=== PATIENT | female | born 1995 | race Caucasian/White ===

== ENCOUNTER → 2018-02-15 | Outpatient (CLI) | payer BC ==
[2018-02-16 13:06] VITALS: BMI 21.8
== END | disposition home or self-care (01) ==
LOC: LABWHC1 12:52
PROVIDERS: ATTEND Psychiatry & Neurology Neurology
DX: R63.0 Anorexia (principal)
CPT/HCPCS: 97802

== ENCOUNTER 2019-02-05 23:14 | Outpatient (CLI) | payer BC ==
[2019-02-06 01:41] VITALS: BP 134/81; PULSE 86; RESP 18; TEMP 98.5
--- NOTE | 2019-03-02 11:23 | P.MSEPDOC ---
Presenting Problems - Arrival Data Date of Arrival on Unit: 02/05/19 Time of Arrival on Unit: 23:14 Mode of Transport: Ambulatory - Complaint OB-Reason for Admission/Chief Complaint: Possible Onset of Labor Medical History - Information : 5 Para: 0 Term: 0 : 0 Abortions: Spontaneous or Elective: 4 Number of Living Children: 0 - Gestational Age Gestational Age by JESSENIA (wks/days): 38 Weeks and 0 Days Review of Systems - Review of Systems Constitutional: No problems Breast: No problems ENT: No problems Cardiovascular: No problems Respiratory: No problems Gastrointestinal: No problems Genitourinary: No problems Musculoskeletal: No problems Neurological: No problems Skin: No problems Vital Signs - Temperature Temperature: 98.5 F Temperature Source: Oral - Pulse Pulse Oximetery Pulse Rate: 86 Pulse Assessment Method: Pulse Oximetry - Respirations Respiratory Rate: 18 Oxygen Delivery Method: Room Air O2 Sat by Pulse Oximetry: 100 - Blood Pressure Right Arm Blood Pressure: 134/81 Blood Pressure Mean: 98 Blood Pressure Source: Automatic Cuff Medical Screen Scoring (Pre) - Cervical Exam Dilation: 1-3 cm = 1 Effacement: More than 50% = 2 Membranes: Intact - Uterine Contractions Frequency: > 5 minutes apart = 1 Duration: > 40 seconds = 2 Intensity: Contraction palpated strong = 1 - Maternal Vital Signs Maternal Temperature: N/A Signs of Preeclampsia: N/A Maternal Respirations: N/A - Maternal Trauma Maternal Trauma: N/A - Assessment - Baby A Baseline FHR: 140 Heart Rate - NICHD Category: Category I (Normal) = 0 NST: Reactive Position: N/A Station: N/A - Total Score - Baby A Total Score - Baby A: 7 - Total Score - Baby B Total Score - Baby B: 7 - Total Score - Baby C Total Score - Baby C: 7 - Level of Risk - Baby A Level of Risk - Baby A: Medium (6-9) - Level of Risk - Baby B Level of Risk - Baby B: Medium (6-9) - Level of Risk - Baby C Level of Risk - Baby C: Medium (6-9) Physician Notification (Pre) - Physician Notified Physician Notified Date: 02/06/19 Physician Notified Time: 00:00 New Order Received: Yes (Recheck in one hour and if no change D/C home) - Notification Comment Comment: Notified of pt complaint of contractions since early today about 3/10 pain scale. Denies leaking of fluid. Disposition - Disposition OB Disposition: Discharge to home Transferred to:: home Discharge Date: 02/06/19 Discharge Time: 01:05 I agree with the RN Medical Screening Exam: Yes Risk & Benefit of care provided described in d/c instruction: Yes Diagnosis: FALSE LABOR AT OR AFTER 37 COMPLETED WEEKS OF GESTATION
== END 2019-02-06 01:15 | disposition home or self-care (01) ==
LOC: FBPOP 23:14
PROVIDERS: ATTEND Obstetrics & Gynecology Obstetrics
DX: O47.1 False labor at or after 37 completed weeks of gestation (principal); Z3A.38 38 weeks gestation of pregnancy
CPT/HCPCS: 99213

== ENCOUNTER 2019-02-06 03:59 | Inpatient (IN) | payer BC ==
[2019-02-06] MEDS ORDERED: CARBOPROST TROMETHAMINE 250 MCG/ML 1 ML AMP IM PRN (04:27)
[2019-02-06] MEDS ORDERED: OXYTOCIN 10 UNIT/ML 1 ML VIAL IM PRN (04:27)
[2019-02-06] MEDS ORDERED: TERBUTALINE 1 MG/ML VIAL SQ PRN (04:27)
[2019-02-06] MEDS ORDERED: METHYLERGONOVINE 0.2 MG/ML 1 ML AMP IM PRN (04:27)
[2019-02-06] MEDS ORDERED: LIDOCAINE 0.5% (PF) 5 MG/ML (50 ML SDV) SQ PRN (04:27)
[2019-02-06] MEDS: LACTATED RINGERS 1,000 ML IV SCH ×3 (04:50→06:32)
[2019-02-06 05:03] LABS: Basophils # (A) 0.1 k/uL (0-0.2); Basophils % (A) 0 %; Eosinophils # (A) 0.3 k/uL (0-0.7); Eosinophils % (A) 1 %; HCT 35.7 % (34.0-46.0); HGB 12.7 gm/dL (11.4-16.0); Lymphocytes # (A) 2.7 k/uL (1.0-4.8); Lymphocytes % (A) 13 %; MCH 32.1 pg (25.0-35.0); MCHC 35.6 g/dL (31.0-37.0); MCV 90.4 fL (80.0-100.0); Mean Platelet Volume 8.1; Monocytes # (A) 1.5 k/uL (0-1.0); Monocytes % (A) 7 %; Neutrophils # (A) 15.1 k/uL (1.3-7.7); Neutrophils % (A) 76 %; Platelet Count 256 k/uL (150-450); RBC 3.94 m/uL (3.80-5.40); RDW 12.4 % (11.5-15.5); WBC 19.9 k/uL (3.8-10.6)
[2019-02-06 05:07] LABS: Amphetamine Screen,Urine Not Detected (NotDetected); Barbiturate Screen,Urine Not Detected (NotDetected); Benzodiazepines Screen,Urine Not Detected (NotDetected); Cocaine Screen,Urine Not Detected (NotDetected); Methadone Screen, Urine Not Detected (NotDetected); Opiate Screen,Urine Not Detected (NotDetected); Oxycodone Screen, Urine Not Detected (NotDetected); Phencyclidine Screen,Urine Not Detected (NotDetected); Tricyclic Antidepressant,Urine Not Detected (NotDetected); Urn Cannabinoid Scrn Detected (NotDetected)
[2019-02-06] MEDS ORDERED: BUTORPHANOL 1 MG/ML 1 ML VIAL IV PRN (05:31)
[2019-02-06] MEDS ORDERED: OXYTOCIN 30 UNITS/500 ML NS 30 UNIT in SALINE 1 500ML.BAG IV SCH (07:45)
[2019-02-06] MEDS ORDERED: ROPIVACAINE 100 MG, fentaNYL (PF) 200 MCG in SODIUM CHLORIDE 0.9% 76 ML EPIDURAL ONE (07:54)
--- NOTE | 2019-02-06 08:21 | P.HPOB ---
History of Present Illness H&P Date: 02/06/19 Chief Complaint: IUP at 38-0/7 weeks, spontaneous rupture of membranes, labor This is a 23-year-old at 38-0/7 weeks that presents to labor and delivery with spontaneous rupture of membranes. Patient was seen in triage earlier with complaints of contractions and no cervical change was noted. Patient was discharged home and rupture of membranes occurred. She states the fluid was clear. She states the contractions became more intense. Patient does note good movement at this time. Patient has been receiving routine care with myself and has been complicated by poor maternal weight gain, phaco abuse, marijuana abuse and known circumvallate placenta. Patient has been followed with testing NSTs, growth ultrasound last growth ultrasound was done at 37 and 1/sevenths weeks' noted to be 18 percentile or 5 lbs. 9 oz. with a normal amniotic fluid index. On bloodwork patient has a blood type of A+, rubella immune, RPR nonreactive, hepatitis B surface antigen negative, HIV negative, most recent urinary drug screen done on 12/05 was positive for THC patient was counseled about quitting and effects on the development she declines. Group beta strep was negative on 01/24/19. Review of Systems Constitutional: Reports fatigue, Denies chills, Denies fever Ears, nose, mouth and throat: Denies headache Cardiovascular: Reports leg edema Respiratory: Denies dyspnea Gastrointestinal: Denies constipation, Denies diarrhea, Denies nausea, Denies vomiting Genitourinary: Reports Psychiatric: Reports anxiety, Reports depression Past Medical History Past Medical History: Asthma History of Any Multi-Drug Resistant Organisms: None Reported Past Surgical History: Tonsillectomy Past Anesthesia/Blood Transfusion Reactions: No Reported Reaction Past Psychological History: Anxiety, Depression Additional Psychological History / Comment(s): ASD, BPD Smoking Status: Current every day smoker Past Alcohol Use History: None Reported Past Drug Use History: None Reported Additional Drug Use History / Comment(s): Has Med Marijuana card and uses - Past Family History Father Family Medical History: COPD, Hypertension Additional Family Medical History / Comment(s): Mental disorders also stated per pt Medications and Allergies Home Medications Medication Instructions Recorded Confirmed Type Aspirin [Adult Low Dose Aspirin EC] 81 mg PO DAILY 02/06/19 02/06/19 History Famotidine [Pepcid] 10 mg PO DAILY 02/06/19 02/06/19 History Pnv No.95/Ferrous Fum/Folic AC 1 tab PO DAILY 02/06/19 02/06/19 History [ Multivitamin Tablet] buPROPion HCL [Wellbutrin XL] 300 mg PO DAILY 02/06/19 02/06/19 History Allergies Allergy/AdvReac Type Severity Reaction Status Date / Time shellfish derived [Shellfish] Allergy Anaphylaxis Verified 02/06/19 04:04 strawberry Allergy Rash/Hives Verified 02/06/19 04:04 banana AdvReac Rash/Hives Verified 02/06/19 04:04 blueberry AdvReac Rash/Hives Verified 02/06/19 04:04 green pepper AdvReac Rash/Hives Verified 02/06/19 04:04 latex AdvReac Rash/Hives Verified 02/06/19 04:05 onion AdvReac Rash/Hives Verified 02/06/19 04:04 tree nut AdvReac Rash/Hives Verified 02/06/19 04:04 Exam Osteopathic Statement: *. No significant issues noted on an osteopathic structural exam other than those noted in the History and Physical/Consult. Vital Signs Temp Pulse Resp BP Pulse Ox 02/06/19 04:25 98.4 F 95 18 125/82 98 02/06/19 04:11 98.4 F 95 18 125/63 98 Intake and Output 02/05/19 02/06/19 02/06/19 22:59 06:59 14:59 Other: # Voids 1 Weight 69.4 kg Targeted physical exam is performed in this date in general she is a well- nourished well-developed female in no acute distress, breathing is no piyush to be nonlabored, heart has a regular rate and rhythm, abdomen is gravid and appropriate for gestational age, heart tones are noted to be category 1, she is kalyani irregularly and on cervical exam she is 6/100/-1 station. Results Result Diagrams: 02/06/19 04:50 Abnormal Lab Results - Last 24 Hours (Table) 02/06/19 02/06/19 Range/Units 04:32 04:50 WBC 19.9 H (3.8-10.6) k/uL Neutrophils # 15.1 H (1.3-7.7) k/uL Monocytes # 1.5 H (0-1.0) k/uL U Marijuana (THC) Screen Detected H (NotDetected) Assessment and Plan (1) Term Current Visit: Yes Status: Acute Code(s): Z34.90 - ENCNTR FOR SUPRVSN OF NORMAL , UNSP, UNSP TRIMESTER SNOMED Code(s): 09938050 (2) SROM (spontaneous rupture of membranes) Current Visit: Yes Status: Acute Code(s): ZHP6624 - SNOMED Code(s): 499021623 (3) Active labor Current Visit: Yes Status: Acute Code(s): YEE2593 - SNOMED Code(s): 809375569 (4) Tobacco abuse Current Visit: Yes Status: Acute Code(s): Z72.0 - TOBACCO USE SNOMED Code(s): 652768976 (5) Marijuana abuse Current Visit: Yes Status: Acute Code(s): F12.10 - CANNABIS ABUSE, UNCOMPLICATED SNOMED Code(s): 95254187 Plan: Patient is admitted to labor and delivery with anticipation of spontaneous vaginal delivery. Given patient's contractions were noted to be irregular Pitocin augmentation of labor is begun. Patient did request epidural and this was placed by the anesthesia department.
[2019-02-06] MEDS ORDERED: HYDROcodone/APAP 5-325MG 1 EACH TAB PO PRN (11:21)
[2019-02-06] MEDS ORDERED: BENZOCAINE/MENTHOL SPRAY 1 GM/SPRAY AEROSOL TOPICAL PRN (11:21)
[2019-02-06] MEDS ORDERED: ZOLPIDEM 5 MG TAB PO PRN (11:21)
[2019-02-06] MEDS ORDERED: WITCH HAZEL 1 EACH MED..PAD TOPICAL PRN (11:21)
[2019-02-06] MEDS ORDERED: diphenhydrAMINE 50 MG/ML 1 ML VIAL IVP PRN ×2 (11:21)
[2019-02-06] MEDS ORDERED: SIMETHICONE 80 MG CHEWABLE PO PRN (11:21)
[2019-02-06] MEDS ORDERED: LANOLIN CREAM 5 GM TUBE TOPICAL PRN (11:21)
[2019-02-06] MEDS ORDERED: ACETAMINOPHEN TAB 325 MG TAB PO PRN (11:21)
[2019-02-06] MEDS ORDERED: diphenhydrAMINE 25 MG CAP PO PRN (11:21)
[2019-02-06] MEDS ORDERED: diphenhydrAMINE 50 MG CAP PO PRN (11:21)
[2019-02-06] MEDS ORDERED: HYDROCORTISONE 2.5% RECTAL CREAM 30 GM TUBE RECTAL PRN (11:21)
[2019-02-06] MEDS ORDERED: OXYTOCIN 20 UNITS/1000 ML NS 1,000 ML IV SCH (11:30)
--- NOTE | 2019-02-06 11:31 | P.PROBDLV ---
Vaginal Delivery Note - . Vaginal Delivery Note: This pleasant 23-year-old 5 para 0040 presented to labor and delivery at 38-0/7 weeks with complaints of rupture of membranes. Patient was seen earlier in the evening with complaints of contractions no cervical change was made therefore she was just discharged home and on the way home membranes were noted to be ruptured. Patient was admitted to labor and delivery and requested epidural placement. Epidural was placed by anesthesia without difficulty. Juliette ent contractions were noted to be spacing therefore Pitocin augmentation of labor was begun. Patient progressed to complete began pushing and had a normal spontaneous vaginal delivery of a viable female with a left compound hand presentation, weight of 5 lbs. 12 oz., Apgars of 8 and 9 at one and 5 minutes respectively. After two-minute delayed the umbilical cord was then doubly clamped and cut. The placenta was then delivered spontaneously intact with a three-vessel cord being noted. On inspection the patient's vaginal vault noted a second-degree midline vaginal laceration. This was repaired in the usual fashion with 3-0 Rapide. A small hematoma was noted 2 cm non-expanding after observation. Uterus is noted to be firm and below the umbilicus, estimated blood loss 200 mL patient and infant tolerated delivery well and are resting comfortably.
[2019-02-06] MEDS: IBUPROFEN 600 MG TAB PO PRN ×2 (14:12→19:36)
[2019-02-06] MEDS: SENNOSIDES-DOCUSATE SODIUM 1 EACH TAB PO SCH (19:37)
[2019-02-07] MEDS: IBUPROFEN 600 MG TAB PO PRN ×3 (07:38→22:56)
[2019-02-07] MEDS: SENNOSIDES-DOCUSATE SODIUM 1 EACH TAB PO SCH ×2 (07:38→20:58)
[2019-02-07 08:06] LABS: Basophils # (A) 0.1 k/uL (0-0.2); Basophils % (A) 0 %; Eosinophils # (A) 0.4 k/uL (0-0.7); Eosinophils % (A) 2 %; HCT 32.5 % (34.0-46.0); HGB 11.3 gm/dL (11.4-16.0); Lymphocytes # (A) 2.4 k/uL (1.0-4.8); Lymphocytes % (A) 12 %; MCH 32.5 pg (25.0-35.0); MCHC 34.8 g/dL (31.0-37.0); MCV 93.5 fL (80.0-100.0); Mean Platelet Volume 8.6; Monocytes # (A) 1.5 k/uL (0-1.0); Monocytes % (A) 7 %; Neutrophils # (A) 15.7 k/uL (1.3-7.7); Neutrophils % (A) 77 %; Platelet Count 225 k/uL (150-450); RBC 3.47 m/uL (3.80-5.40); RDW 12.6 % (11.5-15.5); WBC 20.3 k/uL (3.8-10.6)
--- NOTE | 2019-02-07 08:53 | P.DS ---
Providers Date of admission: 02/06/19 04:24 Expected date of discharge: 02/07/19 Attending physician: Sandie Lizama Primary care physician: Stated None - Discharge Diagnosis(es) (1) Term Current Visit: Yes Status: Acute (2) SROM (spontaneous rupture of membranes) Current Visit: Yes Status: Acute (3) Active labor Current Visit: Yes Status: Acute (4) Tobacco abuse Current Visit: Yes Status: Acute (5) Marijuana abuse Current Visit: Yes Status: Acute Hospital Course: This is a pleasant 23-year-old 5 para 0040 that presented to labor and delivery at 38-0/7 weeks with complaints of regular painful contractions and spontaneous rupture of membranes. Patient was admitted to labor and delivery and she quickly requested epidural for discomfort. Epidural was placed without difficulty by the anesthesia department. Her contraction pattern was noted to space after the epidural therefore Pitocin augmentation of labor was begun. Patient progressed to complete began pushing and had a normal spontaneous vaginal delivery of a viable female infant with a weight of 5 lbs. 12 oz. and Apgars of 8 and 9 at one and 5 minutes respectively. Patient did sustain a second-degree midline vaginal laceration which was repaired in the usual fashion with 3-0 Rapide. She did have a noted small hematoma partially 2 cm that was not expanding after delivery. On this day #1 it has decreased even further swelling has decreased in addition. patient has a known positive UDS for marijuana she states she is attempting to breast-feed I did patient financial counselor her that breast-feeding is discouraged with marijuana use. She will consider. I do believe she will continue to attempt to breast- feed. Risks of breast-feeding with marijuana use are discussed she denies any questions regarding this. On this day #1 she is ambulating and voiding without difficulty. Her pain is controlled with oral ibuprofen, her lochia is minimal. She is considering discharge home at 24 hours. Patient Condition at Discharge: Good Plan - Discharge Summary New Discharge Prescriptions: No Action buPROPion HCL [Wellbutrin XL] 300 mg PO DAILY Pnv No.95/Ferrous Fum/Folic AC [ Multivitamin Tablet] 1 tab PO DAILY Famotidine [Pepcid] 10 mg PO DAILY Aspirin [Adult Low Dose Aspirin EC] 81 mg PO DAILY Discharge Medication List Aspirin [Adult Low Dose Aspirin EC] 81 mg PO DAILY 02/06/19 [History] Famotidine [Pepcid] 10 mg PO DAILY 02/06/19 [History] Pnv No.95/Ferrous Fum/Folic AC [ Multivitamin Tablet] 1 tab PO DAILY 02/06/19 [History] buPROPion HCL [Wellbutrin XL] 300 mg PO DAILY 02/06/19 [History] Follow up Appointment(s)/Referral(s): Sandie Lizama DO [Doctor of Osteopathic Medicine] - 4 Weeks Patient Instructions/Handouts: Vaginal Delivery (DC), Vaginal Delivery (GEN) Discharge Disposition: HOME SELF-CARE
[2019-02-07] MEDS ORDERED: PRENATAL VIT-IRON-FOLIC ACID 1 EACH CAP PO SCH (09:00)
[2019-02-07] MEDS ORDERED: buPROPion XL 300 MG TAB.ER.24H PO SCH (09:00)
[2019-02-07 09:35] VITALS: RESP 16
[2019-02-07] MEDS ORDERED: DIPH,PERTUS(ACELL)TETVAC-LF 0.5 ML VIAL IM ONE (16:22)
[2019-02-08 08:22] VITALS: BP 117/65; PULSE 76; TEMP 98.3
== END 2019-02-08 13:00 | disposition home or self-care (01) | DRG 806 ==
LOC: FBPOP 03:59 → 4FBP 04:24
PROVIDERS: ADMIT Obstetrics & Gynecology Obstetrics; ATTEND Obstetrics & Gynecology Obstetrics
PROC: 10E0XZZ Delivery of Products of Conception, External Approach (ICD-10-PCS; principal; 2019-02-06)
PROC: 0KQM0ZZ Repair Perineum Muscle, Open Approach (ICD-10-PCS; 2019-02-06)
PROC: 00HU33Z Insertion of Infusion Device into Spinal Canal, Percutaneous Approach (ICD-10-PCS; 2019-02-06)
PROC: 3E0R3BZ Introduction of Anesthetic Agent into Spinal Canal, Percutaneous Approach (ICD-10-PCS; 2019-02-06)
DX: O32.6XX0 Maternal care for compound presentation, not applicable or unspecified (principal); O99.324 Drug use complicating childbirth; Z37.0 Single live birth; O99.344 Other mental disorders complicating childbirth; O43.113 Circumvallate placenta, third trimester; O70.1 Second degree perineal laceration during delivery; F12.10 Cannabis abuse, uncomplicated; O99.334 Smoking (tobacco) complicating childbirth; F17.200 Nicotine dependence, unspecified, uncomplicated; O99.52 Diseases of the respiratory system complicating childbirth; J45.909 Unspecified asthma, uncomplicated; F32.9 Major depressive disorder, single episode, unspecified; F41.9 Anxiety disorder, unspecified; O99.62 Diseases of the digestive system complicating childbirth; O99.89 Other specified diseases and conditions complicating pregnancy, childbirth and the puerperium; K21.9 Gastro-esophageal reflux disease without esophagitis; M40.50 Lordosis, unspecified, site unspecified; Z3A.38 38 weeks gestation of pregnancy; Z79.82 Long term (current) use of aspirin; Z79.899 Other long term (current) drug therapy; Z82.49 Family history of ischemic heart disease and other diseases of the circulatory system; Z82.5 Family history of asthma and other chronic lower respiratory diseases
CPT/HCPCS: 59025; 80306; 84112; 85025; 86850; 86900; 86901; 90715; 99213

== ENCOUNTER 2022-12-15 06:00 | Inpatient (IN) | payer BC, OTHER ==
[2022-12-15] MEDS ORDERED: miSOPROStoL 200 MCG TAB PO PRN (06:49)
[2022-12-15] MEDS ORDERED: CARBOPROST TROMETHAMINE 250 MCG/ML 1 ML AMP IM PRN (06:49)
[2022-12-15] MEDS ORDERED: TRANEXAMIC 1,000 MG/100ML-NACL 1,000 MG in EMPTY BAG 1 BAG IV PRN (06:49)
[2022-12-15] MEDS ORDERED: TERBUTALINE 1 MG/ML VIAL SQ PRN (06:49)
[2022-12-15] MEDS ORDERED: LIDOCAINE 0.5% (PF) 5 MG/ML (50 ML SDV) SQ PRN (06:49)
[2022-12-15] MEDS ORDERED: OXYTOCIN 10 UNIT/ML 1 ML VIAL IM PRN (06:49)
[2022-12-15] MEDS ORDERED: METHYLERGONOVINE 0.2 MG/ML 1 ML AMP IM PRN (06:49)
[2022-12-15] MEDS: LACTATED RINGERS 1,000 ML IV SCH ×2 (07:00→10:36)
[2022-12-15] MEDS ORDERED: OXYTOCIN 30 UNITS/500 ML NS 30 UNIT in SALINE 1 500ML.BAG IV SCH (07:00)
[2022-12-15 07:08] LABS: Basophils # (A) 0.1 k/uL (0-0.2); Basophils % (A) 1 %; Eosinophils # (A) 0.3 k/uL (0-0.7); Eosinophils % (A) 2 %; HCT 35.7 % (34.0-46.0); HGB 12.3 gm/dL (11.4-16.0); Lymphocytes # (A) 2.9 k/uL (1.0-4.8); Lymphocytes % (A) 16 %; MCHC 34.4 g/dL (31.0-37.0); Mean Platelet Volume 8.3; Monocytes # (A) 1.4 k/uL (0-1.0); Monocytes % (A) 8 %; Neutrophils # (A) 13.3 k/uL (1.3-7.7); Neutrophils % (A) 73 %; Platelet Count 274 k/uL (150-450); RBC 3.97 m/uL (3.80-5.40); RDW 12.6 % (11.5-15.5); WBC 18.2 k/uL (3.8-10.6)
[2022-12-15 07:43] LABS: Urn Cannabinoid Scrn Detected (NotDetected)
[2022-12-15 07:44] LABS: Amphetamine Screen,Urine Not Detected (NotDetected); Barbiturate Screen,Urine Not Detected (NotDetected); Benzodiazepines Screen,Urine Not Detected (NotDetected); Cocaine Screen,Urine Not Detected (NotDetected); Methadone Screen, Urine Not Detected (NotDetected); Opiate Screen,Urine Not Detected (NotDetected); Oxycodone Screen, Urine Not Detected (NotDetected); Phencyclidine Screen,Urine Not Detected (NotDetected); Tricyclic Antidepressant,Urine Not Detected (NotDetected)
[2022-12-15] MEDS ORDERED: fentaNYL (PF) 50 MCG/ML 5 ML AMP ONE (10:28)
[2022-12-15] MEDS ORDERED: ROPIVACAINE 5 MG/ML 30 ML VIAL ONE (10:28)
[2022-12-15] MEDS ORDERED: SODIUM CHLORIDE 0.9% 250 ML BAG ONE (10:28)
[2022-12-15] MEDS ORDERED: SILVER NITRATE APPLICATOR 1 EACH STICK..EA. TOPICAL ONE (12:25)
[2022-12-15] MEDS ORDERED: diphenhydrAMINE 50 MG/ML 1 ML VIAL IVP PRN ×2 (12:35)
[2022-12-15] MEDS ORDERED: LANOLIN CREAM 5 GM TUBE TOPICAL PRN (12:35)
[2022-12-15] MEDS ORDERED: ACETAMINOPHEN TAB 325 MG TAB PO PRN (12:35)
[2022-12-15] MEDS ORDERED: diphenhydrAMINE 25 MG CAP PO PRN (12:35)
[2022-12-15] MEDS ORDERED: ZOLPIDEM 5 MG TAB PO PRN (12:35)
[2022-12-15] MEDS ORDERED: BENZOCAINE/MENTHOL SPRAY 1 GM/SPRAY AEROSOL TOPICAL PRN (12:35)
[2022-12-15] MEDS ORDERED: SIMETHICONE 80 MG CHEWABLE PO PRN (12:35)
[2022-12-15] MEDS ORDERED: diphenhydrAMINE 50 MG CAP PO PRN (12:35)
[2022-12-15] MEDS ORDERED: HYDROCORTISONE 2.5% RECTAL CREAM 30 GM TUBE RECTAL PRN (12:35)
--- NOTE | 2022-12-15 12:40 | P.PROBDLV ---
Vaginal Delivery Note - . Vaginal Delivery Note: 27 yo that presented to labor and delivery this morning for elective induction of labor. Patient had been receiving routine care with myself. For full details on this patient please the dictated history and physical. Patient was admitted and Pitocin induction of labor was begun. Patient underwent amniotomy clear fluid was obtained. Patient did elect epidural and this was placed by the anesthesia department. Patient progressed to complete soon after epidural was placed and began pushing. With excellent maternal effort patient had a normal spontaneous vaginal delivery of viable female infant at 1205, loose nuchal cord was appreciated and delivered through. After two-minute delayed the umbo cord was doubly clamped and cut and the infant was handed to the maternal abdomen. Spontaneous cry was noted at . Placenta was delivered spontaneously intact with a three-vessel cord being noted. On inspection the patient's vaginal vault a second-degree vaginal laceration was appreciated. This was injected with lidocaine repaired in usual fashion with 3-0 Rapide. Silver nitrate was applied to the lateral edges of the vaginal laceration hemostasis was appreciated. Uterus is noted to be firm and below the umbilicus after delivery. Estimated blood loss 200 mL. The bladder was drained just after delivery of the placenta for approximately 300 mL of clear yellow urine. All counts are correct 2 at the end of the delivery. Patient and infant tolerated delivery well and are resting comfortably.
--- NOTE | 2022-12-15 12:42 | P.HPOB ---
History of Present Illness H&P Date: 12/15/22 Chief Complaint: IUP @ 39 weeks This is a 27 yo G 6 P1051 at 39 weeks of gestation that presents for elective induction of labor. Patient does live in [place] which is quite a distance from the hospital therefore elected induction of labor. Patient has been receiving routine care which has been essentially uncomplicated. Patient is a nonsmoker and marijuana user. Patient has a history of anxiety and depression which has been controlled with oral Zoloft. Patient notes good movement notes an occasional contraction denies vaginal bleeding or loss of fluid. On bloodwork this patient has a blood type of A+, rubella immune, HIV negative, RPR is nonreactive, group beta strep cultures negative Review of Systems Constitutional: Reports fatigue, Denies chills, Denies fever Ears, nose, mouth and throat: Denies headache Cardiovascular: Reports leg edema Respiratory: Denies dyspnea Gastrointestinal: Denies constipation, Denies diarrhea, Denies nausea, Denies vomiting Genitourinary: Reports Past Medical History Past Medical History: Asthma History of Any Multi-Drug Resistant Organisms: None Reported Past Surgical History: Tonsillectomy Past Anesthesia/Blood Transfusion Reactions: No Reported Reaction Past Psychological History: Anxiety, Depression Additional Psychological History / Comment(s): ASD, BPD Smoking Status: Current every day smoker Past Alcohol Use History: None Reported Past Drug Use History: None Reported Additional Drug Use History / Comment(s): Has Med Marijuana card and uses - Past Family History Father Family Medical History: COPD, Diabetes Mellitus, Hypertension Additional Family Medical History / Comment(s): Mental disorders also stated per pt Medications and Allergies Home Medications Medication Instructions Recorded Confirmed Type Aspirin [Adult Low Dose Aspirin EC] 81 mg PO DAILY 02/06/19 12/15/22 History Famotidine [Pepcid] 10 mg PO DAILY 02/06/19 12/15/22 History Pnv No.95/Ferrous Fum/Folic AC 1 tab PO DAILY 02/06/19 12/15/22 History [ Multivitamin Tablet] Sertraline [Zoloft] 1 tab PO DAILY 12/15/22 12/15/22 History Allergies Allergy/AdvReac Type Severity Reaction Status Date / Time bee venom protein (honey bee) Allergy Anaphylaxis Verified 12/15/22 06:48 shellfish derived [Shellfish] Allergy Anaphylaxis Verified 12/15/22 06:48 strawberry Allergy Rash/Hives Verified 12/15/22 06:48 banana AdvReac Rash/Hives Verified 12/15/22 06:48 pacheco pepper [green pepper] AdvReac Rash/Hives Verified 12/15/22 06:48 blueberry AdvReac Rash/Hives Verified 12/15/22 06:48 latex AdvReac Rash/Hives Verified 12/15/22 06:48 onion AdvReac Rash/Hives Verified 12/15/22 06:48 Penicillins AdvReac Nausea & Verified 12/15/22 06:48 Vomiting tree nut AdvReac Rash/Hives Verified 12/15/22 06:48 Exam Osteopathic Statement: *. No significant issues noted on an osteopathic structural exam other than those noted in the History and Physical/Consult. Vital Signs Temp Pulse Resp BP Pulse Ox 12/15/22 06:45 97.3 F L 78 18 121/77 98 Intake and Output 12/14/22 12/15/22 12/15/22 22:59 06:59 14:59 Other: Weight 79.379 kg Targeted physical exam is performed and state in general this a well-nourished well-developed female in no acute distress, breathing is noted to be nonlabored, heart has a regular rate and rhythm, abdomen is gravid and appropriate for gestational age, on cervical exam she is 4/80/-2 station amniotomy is performed and clear fluid was obtained. heart tones noted be category 1 and she is kalyani every 2 minutes. Results Result Diagrams: 12/15/22 06:55 Abnormal Lab Results - Last 24 Hours (Table) 12/15/22 12/15/22 Range/Units 06:20 06:55 WBC 18.2 H (3.8-10.6) k/uL Neutrophils # 13.3 H (1.3-7.7) k/uL Monocytes # 1.4 H (0-1.0) k/uL U Marijuana (THC) Screen Detected H (NotDetected) Assessment and Plan (1) 39 weeks gestation of Current Visit: Yes Status: Acute Code(s): Z3A.39 - 39 WEEKS GESTATION OF SNOMED Code(s): 05620369 Plan: 27-year-old 6 para 1051 at 39 weeks of gestation presents for induction of labor. Patient is admitted to labor and delivery and Pitocin induction of labor is begun per hospital protocol. Patient underwent amniotomy, clear fluid was appreciated. Patient is counseled on options for analgesia including epidural, Nubain, nitrous. Patient states she will consider. Anticipate spontaneous vaginal delivery later today.
[2022-12-15] MEDS: IBUPROFEN 600 MG TAB PO SCH ×2 (12:57→20:18)
[2022-12-15] MEDS ORDERED: MEASLES-MUMPS-RUBELLA VACC/PF 12,500 UNIT/0.5 ML VIAL SQ ONE (16:30)
[2022-12-15] MEDS: SENNOSIDES-DOCUSATE SODIUM 1 EACH TAB PO SCH (20:18)
[2022-12-15 21:25] VITALS: RESP 16
[2022-12-16] MEDS: IBUPROFEN 600 MG TAB PO SCH ×2 (04:11→08:46)
[2022-12-16 08:14] VITALS: BP 110/70; PULSE 61; TEMP 97.6
[2022-12-16] MEDS: SENNOSIDES-DOCUSATE SODIUM 1 EACH TAB PO SCH (08:46)
[2022-12-16] MEDS ORDERED: SERTRALINE 100 MG TAB PO SCH (09:00)
[2022-12-16] MEDS ORDERED: PRENATAL VIT-IRON-FOLIC ACID 1 EACH TABLET PO SCH (09:00)
--- NOTE | 2022-12-16 11:50 | P.DS ---
Providers Date of admission: 12/15/22 06:25 Expected date of discharge: 12/16/22 Attending physician: Sandie Lizama Primary care physician: Stated None - Discharge Diagnosis(es) (1) 39 weeks gestation of Current Visit: Yes Status: Acute (2) Status post vaginal delivery Current Visit: Yes Status: Acute (3) Marijuana abuse Current Visit: No Status: Acute (4) Tobacco abuse Current Visit: No Status: Acute (5) Second degree laceration of perineum, delivered, current hospitalization Current Visit: Yes Status: Acute Hospital Course: this is a 27 yo G7 now P2052 that presented to labor and delivery for induction of labor. She has been receiving routine care with myself. She is a known smoker and THC user. For full details on this patient please see dictated history and physical. she was admitted and pitocin induction of labor was begun with pitocin per hospital protocol. She did request and epidural and anesthesia did place it without difficulty. She progressed quickly to complete and began pushing. She had a of a viable female 6-1 at 12:05, second degree vaginal laceration was noted after delivery. THis was repaired in the usual fashion with 3-0 rapide. Patients post course has been uneventful. She is feeling well this am with some minor cramping. She is desirous of discharge at 24 hours. She notes her pain to be well controlled with Ibuprofen. Plan to discharge home at 24 hours this afternoon. Patient Condition at Discharge: Good Plan - Discharge Summary New Discharge Prescriptions: No Action Pnv No.95/Ferrous Fum/Folic AC [ Multivitamin Tablet] 1 tab PO DAILY Famotidine [Pepcid] 10 mg PO DAILY Aspirin [Adult Low Dose Aspirin EC] 81 mg PO DAILY Sertraline [Zoloft] 1 tab PO DAILY Discharge Medication List Aspirin [Adult Low Dose Aspirin EC] 81 mg PO DAILY 02/06/19 [History] Famotidine [Pepcid] 10 mg PO DAILY 02/06/19 [History] Pnv No.95/Ferrous Fum/Folic AC [ Multivitamin Tablet] 1 tab PO DAILY 02/06/19 [History] Sertraline [Zoloft] 1 tab PO DAILY 12/15/22 [History] Follow up Appointment(s)/Referral(s): Sandie Lizama DO [Doctor of Osteopathic Medicine] - 6 Weeks Patient Instructions/Handouts: Vaginal Delivery (DC), Vaginal Delivery (GEN) Activity/Diet/Wound Care/Special Instructions: no tub baths or intercourse until 6 weeks post . otc ibuprofen as needed for pain. she is to call and make a 6 week PP appointment., should she have any concerns prior to this appointment she is to call and be seen sooner. Discharge Disposition: HOME SELF-CARE
== END 2022-12-16 13:45 | disposition home or self-care (01) | DRG 806 ==
LOC: 4FBP 06:25
PROVIDERS: ADMIT Obstetrics & Gynecology Obstetrics; ATTEND Obstetrics & Gynecology Obstetrics
PROC: 10E0XZZ Delivery of Products of Conception, External Approach (ICD-10-PCS; principal; 2022-12-15)
PROC: 0KQM0ZZ Repair Perineum Muscle, Open Approach (ICD-10-PCS; 2022-12-15)
PROC: 3E033VJ Introduction of Other Hormone into Peripheral Vein, Percutaneous Approach (ICD-10-PCS; 2022-12-15)
PROC: 10907ZC Drainage of Amniotic Fluid, Therapeutic from Products of Conception, Via Natural or Artificial Opening (ICD-10-PCS; 2022-12-15)
DX: O69.81X0 Labor and delivery complicated by cord around neck, without compression, not applicable or unspecified (principal); O99.324 Drug use complicating childbirth; Z37.0 Single live birth; O70.1 Second degree perineal laceration during delivery; O99.334 Smoking (tobacco) complicating childbirth; O99.344 Other mental disorders complicating childbirth; J45.909 Unspecified asthma, uncomplicated; F41.9 Anxiety disorder, unspecified; F32.A Depression, unspecified; F12.10 Cannabis abuse, uncomplicated; F17.200 Nicotine dependence, unspecified, uncomplicated; O99.52 Diseases of the respiratory system complicating childbirth; Z3A.39 39 weeks gestation of pregnancy; Z79.82 Long term (current) use of aspirin; Z82.49 Family history of ischemic heart disease and other diseases of the circulatory system; Z82.5 Family history of asthma and other chronic lower respiratory diseases; Z83.3 Family history of diabetes mellitus
CPT/HCPCS: 80306; 85025; 86850; 86900; 86901; 90707